=== PATIENT | male | born 1945 | race Caucasian/White ===

== ENCOUNTER 2018-01-23 05:38 | Day surgery (SDC) | payer MEDICARE ==
[2018-01-22 10:55] VITALS: BMI 20.9
[2018-01-23] MEDS ORDERED: Lidocaine 1% (PF) 30 ML VIAL ONE (06:55)
[2018-01-23] MEDS ORDERED: Midazolam HCl 2 mg/2 ml Vial ONE ×2 (07:13→08:53)
[2018-01-23] MEDS ORDERED: Fentanyl 100 MCG/2 ML VIAL ONE (07:14)
[2018-01-23] MEDS ORDERED: Heparin 10,000 UNITS/1 ML VIAL ONE (07:41)
[2018-01-23] MEDS ORDERED: Fentanyl 250 MCG/5 ML VIAL ONE (08:40)
--- NOTE | 2018-01-24 18:38 | EKG ---
Test Reason : Blood Pressure : / mmHG Vent. Rate : 053 BPM Atrial Rate : 053 BPM P-R Int : 178 ms QRS Dur : 138 ms QT Int : 418 ms P-R-T Axes : 052 067 265 degrees QTc Int : 392 ms Sinus bradycardia with occasional Premature ventricular complexes Non-specific intra-ventricular conduction block T wave abnormality, consider inferolateral ischemia Abnormal ECG No previous ECGs available Confirmed by NORMA MONTES, SBeto ([id number]) on 01/24/2018 6:37:41 PM Referred By: JEFF Confirmed By:DR. Nicky GREEN MD
== END 2018-01-23 12:20 | disposition home or self-care (01) ==
LOC: CCL 05:38
PROVIDERS: ATTEND Internal Medicine Cardiovascular Disease
PROC: B2111ZZ Fluoroscopy of Multiple Coronary Arteries using Low Osmolar Contrast (ICD-10-PCS; principal; 2018-01-23)
DX: I25.10 Atherosclerotic heart disease of native coronary artery without angina pectoris (principal); I42.0 Dilated cardiomyopathy; Z79.899 Other long term (current) drug therapy; Z79.01 Long term (current) use of anticoagulants; Z88.8 Allergy status to other drugs, medicaments and biological substances
CPT/HCPCS: 82565; 85347; 93005; 93454; 93567; C1769; 93010; 99152; 99153; J1644; J2001; J2250; J3010

== ENCOUNTER 2018-03-04 07:18 | Outpatient (CLI) | payer MEDICARE ==
[2018-03-04] MEDS ORDERED: Iopamidol 370 76% 100 ML VIAL ONE (11:56)
== END 2018-03-04 07:19 | disposition home or self-care (01) ==
LOC: BICCT 07:18
PROVIDERS: ATTEND Internal Medicine Cardiovascular Disease
DX: I71.2 Thoracic aortic aneurysm, without rupture (principal); I35.0 Nonrheumatic aortic (valve) stenosis; I42.0 Dilated cardiomyopathy; I77.811 Abdominal aortic ectasia; J44.9 Chronic obstructive pulmonary disease, unspecified; I70.90 Unspecified atherosclerosis
CPT/HCPCS: 71275; 74174

== ENCOUNTER 2018-11-04 15:33 | Outpatient (CLI) | payer MEDICARE ==
[2018-11-04 15:58] LABS: #Basophils 0.1 thou/uL (0.0-0.2); #Eosinphils 0.2 thou/uL (0.0-0.7); #Monocytes 0.5 thou/uL (0.11-0.59); #Neutrophils 5.2 thou/uL (1.40-6.50); %Basophils 0.7 % (0.0-1.0); %Lymphocytes 24.5 % (21.0-51.0); %Monocytes 5.9 % (0.0-10.0); %Neutrophils 65.9 % (42.0-75.0); Hemoglobin 14.8 g/dL (14.0-18.0); Mean Corpuscular HGB CONC 34.3 g/dL (32.0-36.0); Mean Corpuscular Hemoglobin 32.7 pg (27.0-31.0); Mean Corpuscular Volume 95.4 fL (78.0-98.0); Mean Platelet Volume 9.7 fL (7.4-10.4); Platelet Count 145 thou/uL (130-400); RBC Distribution Width 12.1 % (11.5-14.5); Red Blood Cell (RBC) Count 4.53 mill/uL (4.70-6.10)
[2018-11-04 16:01] LABS: INR-International Normal Ratio 1.7; PTT 34.6 SEC (22.9-36.1); Prothrombin Time 19.9 SEC (12.0-14.7)
[2018-11-04 16:19] LABS: Anion Gap 15 mmol/L (10-20); BUN (Urea Nitrogen) 22 mg/dL (8.4-25.7); Calc. Creatinine Clearance 0 mL/min (70-130); Calcium 10.1 mg/dL (7.8-10.44); Carbon Dioxide 26 mmol/L (23-31); Chloride 106 mmol/L (98-107); Estimated GFR-MDRD 47; Glucose 100 mg/dL (83-110); Potassium 4.9 mmol/L (3.5-5.1); Sodium 142 mmol/L (136-145)
== END 2018-11-04 15:34 | disposition home or self-care (01) ==
LOC: LABBT 15:33
PROVIDERS: ATTEND Internal Medicine Cardiovascular Disease
DX: Z51.81 Encounter for therapeutic drug level monitoring (principal); I25.5 Ischemic cardiomyopathy; Z79.01 Long term (current) use of anticoagulants
CPT/HCPCS: 80048; 85025; 85610; 85730

== ENCOUNTER 2018-11-09 06:09 | Day surgery (SDC) | payer MEDICARE ==
[2018-11-04 15:44] VITALS: BMI 20.2
[2018-11-09] MEDS ORDERED: CEFAZOLIN 1 GM VIAL ONE (07:22)
[2018-11-09] MEDS ORDERED: Meperidine HCl/PF 25 MG/ML VIAL ONE (08:26)
--- NOTE | 2018-11-09 11:46 | RAD ---
SINGLE VIEW OF THE CHEST: COMPARISON: 10/30/2017. HISTORY: CHF. FINDINGS: A single view of the chest shows an enlarged cardiomediastinal silhouette. The patient is status pos t sternotomy. There is a pacemaker with its leads in the right atrium and right ventricle. There ma y also be a lead in the coronary sinus. No pneumothorax is seen. There is no evidence of consolidat ion, mass, or pleural effusion. IMPRESSION: 1. Status post pacemaker placement without evidence of complication. 2. Cardiomegaly. POS: [facility]
[2018-11-09] MEDS ORDERED: PROPOFOL 200 MG/20 ML VIAL ONE (14:43)
[2018-11-09] MEDS ORDERED: ePHEDrine/0.9% NaCl/PF SYRINGE 50 mg/10 ml ONE (14:43)
== END 2018-11-09 13:58 | disposition home or self-care (01) ==
LOC: CCL 06:09
PROVIDERS: ATTEND Internal Medicine Cardiovascular Disease
PROC: 0JH609Z Insertion of Cardiac Resynchronization Defibrillator Pulse Generator into Chest Subcutaneous Tissue and Fascia, Open Approach (ICD-10-PCS; principal; 2018-11-09)
PROC: 02H63KZ Insertion of Defibrillator Lead into Right Atrium, Percutaneous Approach (ICD-10-PCS; 2018-11-09)
PROC: 02HK3KZ Insertion of Defibrillator Lead into Right Ventricle, Percutaneous Approach (ICD-10-PCS; 2018-11-09)
DX: I50.22 Chronic systolic (congestive) heart failure (principal); I25.5 Ischemic cardiomyopathy; I51.7 Cardiomegaly; I25.10 Atherosclerotic heart disease of native coronary artery without angina pectoris; Z95.2 Presence of prosthetic heart valve; Z79.01 Long term (current) use of anticoagulants; Z79.899 Other long term (current) drug therapy
CPT/HCPCS: 33225; 33249; 36005; 71045; 75820; 93641; C1777; C1882; C1898; C1900; J0690; J2175; J2704; J3490

== ENCOUNTER 2019-04-30 20:05 | Inpatient (IN) | payer MEDICARE ==
[2019-04-30] MEDS ORDERED: Milk Of Magnesia 30 ML UDCUP PO PRN (20:37)
[2019-04-30] MEDS ORDERED: Promethazine HCl 25 MG/ML VIAL IM PRN (20:37)
[2019-04-30] MEDS ORDERED: Acetaminophen 325 MG TAB PO PRN (20:37)
[2019-04-30] MEDS ORDERED: Promethazine 25 MG TAB PO PRN (20:37)
[2019-04-30] MEDS ORDERED: Ondansetron PF 4 MG/2 ML Vial IVP PRN (20:37)
[2019-04-30] MEDS ORDERED: Labetalol HCl 100 MG/20 ML VIAL SLOW IVP PRN (20:37)
[2019-04-30] MEDS ORDERED: Morphine 2 MG/ML SYRINGE SLOW IVP PRN (20:37)
[2019-04-30] MEDS ORDERED: diphenhydrAMINE 50 MG CAP PO PRN (20:37)
[2019-04-30] MEDS ORDERED: Docusate 100 MG CAP PO PRN (20:37)
[2019-04-30] MEDS ORDERED: Mag-Al 1200 mg/1200 mg/30 ML UDCUP PO PRN (20:37)
[2019-04-30] MEDS ORDERED: hydrALAZINE 20 MG/ML VIAL SLOW IVP PRN (20:37)
[2019-04-30] MEDS: Acetaminophen/Codeine 30-300mg Tablet PO PRN (21:40)
[2019-04-30] MEDS: Famotidine 20 MG TAB PO SCH (21:40)
[2019-04-30] MEDS: Sodium Chloride 0.9% 1,000 ML IV SCH (21:41)
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
[2019-05-01] MEDS: Acetaminophen/Codeine 30-300mg Tablet PO PRN ×3 (05:47→17:54)
[2019-05-01] MEDS: Furosemide 40 MG TAB PO SCH (07:39)
--- NOTE | 2019-05-01 08:41 | CT ---
PRELIMINARY REPORT/[facility]/EMERGENCY AFTER HOURS PROCEDURE: EXAM: CT Head Without Contrast EXAM DATE/TIME: 05/01/2019 4:03 AM CLINICAL HISTORY: 73 years old, male; Condition or disease; Patient HX: F/u sah; Additional info: *patient was scanned at another facility, prior images sent to [facility] for comparison. PT id at prior facility [id number] TECHNIQUE: Imaging protocol: Axial computed tomography images of the head without contrast. COMPARISON: No relevant prior studies available. FINDINGS: Brain: Acute multifocal bilateral subarachnoid hemorrhage. Acute extensive left parafalcine subdural hematoma measuring 11 mm in thickness. Prior study is not provided for comparison but, per history, i ntracranial hemorrhage is known. There is no midline shift. Old lacunar infarction(s). Volume loss an d chronic small vessel ischemic change. Ventricles: Normal. No ventriculomegaly. Bones/joints: Unremarkable. No acute fracture. Sinuses: Visualized sinuses are unremarkable. No fluid levels. Mastoid air cells: Visualized mastoid air cells are well aerated. No mastoid effusion. Soft tissues: Left parietal scalp contusion. IMPRESSION: Acute multifocal bilateral subarachnoid hemorrhage. Acute extensive left parafalcine subdural hematom a measuring 11 mm in thickness. Prior study is not provided for comparison but, per history, intracra nial hemorrhage is known. There is no midline shift. Thank you for allowing us to participate in the care of your patient. Dictated and Authenticated by: Gage Henriquez MD 05/01/2019 4:36 AM Central Time ([place] & [place]) FINAL REPORT HEAD CT WITHOUT CONTRAST: Date: 05/01/19 COMPARISON: 04/30/18. HISTORY: Followup subarachnoid and subdural hemorrhage. FINDINGS: Redemonstration of extra-axial hemorrhage in the subdural and subarachnoid space. There is a left par afalcine subdural collection which has not significantly changed and currently measures 9 mm (previou sly measuring 7 mm). Minimal mass effect upon the medial aspect of the left frontal and parietal lobe , near the vertex. Patchy areas of subarachnoid blood do remain. There is no evidence of hemorrhage i n the ventricular system. Cortical peñaloza-white matter differentiation appears to be preserved. Stable hypodensities in the brain parenchyma. IMPRESSION: Essentially stable intracranial hemorrhage. Continued surveillance is recommended. This report is in agreement with the preliminary report by [facility]. POS: OFF
[2019-05-01] MEDS: Lisinopril 2.5 MG TAB PO SCH (09:28)
[2019-05-01] MEDS: Sodium Chloride 0.9% 1,000 ML IV SCH (10:00)
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
[2019-05-01] MEDS: Famotidine 20 MG TAB PO SCH ×2 (11:10→20:32)
--- NOTE | 2019-05-01 11:50 | RAD ---
LEFT SHOULDER 3 VIEWS: Date: 05/01/19 HISTORY: Shoulder pain status post fall. FINDINGS: The bones are demineralized. There are no signs of fracture or dislocation. IMPRESSION: No evidence of fracture. POS: C
--- NOTE | 2019-05-01 12:02 | CT ---
CT Brain WO Con HISTORY: Follow-up of subdural hemorrhage. COMPARISON: Study done earlier this morning. FINDINGS: There is generalized ventricular and sulcal prominence. Decreased attenuation is seen to the perivent ricular white matter. Some encephalomalacia changes seen within the right occipital lobe. Small lacunar infarct in the right cerebellum. The subdural blood mainly in a parafalcine location is stable in the subarachnoid blood appears simil ar to the prior examination with some minimal improvement. No new areas of hemorrhage. Mastoid air cells and visualized sinuses are clear. IMPRESSION: Slight interval clearing to the subarachnoid blood.
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
[2019-05-01 14:38] VITALS: BMI 21.7
[2019-05-01] MEDS ORDERED: Dextrose 50% Abboject 50 ML SYRINGE SLOW IVP PRN (16:50)
[2019-05-01] MEDS ORDERED: HumaLOG 300 UNITS/3 ML VIAL SC PRN (16:50)
[2019-05-01] MEDS ORDERED: Dextrose 5% in Water 1,000 ML IV PRN (16:50)
[2019-05-01 16:53] LABS: #Lymphocytes 0.9 thou/uL (1.20-3.40); #Monocytes 0.5 thou/uL (0.11-0.59); #Neutrophils 5.4 thou/uL (1.40-6.50); %Basophils 0.2 % (0.0-1.0); %Eosinophils 0.4 % (0.0-10.0); %Lymphocytes 13.4 % (21.0-51.0); %Monocytes 6.9 % (0.0-10.0); Hemoglobin 11.1 g/dL (14.0-18.0); INR-International Normal Ratio 2.3; Mean Corpuscular HGB CONC 34.4 g/dL (32.0-36.0); Mean Corpuscular Hemoglobin 32.9 pg (27.0-31.0); Mean Corpuscular Volume 95.6 fL (78.0-98.0); Mean Platelet Volume 9.1 fL (7.4-10.4); Platelet Count 88 thou/uL (130-400); Prothrombin Time 25.4 SEC (12.0-14.7); RBC Distribution Width 12.2 % (11.5-14.5); Red Blood Cell (RBC) Count 3.36 mill/uL (4.70-6.10); White Blood Cell (WBC) Count 6.9 thou/uL (4.8-10.8)
[2019-05-01 17:07] LABS: ALT (SGPT) 11 U/L (8-55); AST (SGOT) 21 U/L (5-34); Albumin 3.7 g/dL (3.4-4.8); Alkaline Phosphatase 43 U/L (40-150); Anion Gap 12 mmol/L (10-20); BUN (Urea Nitrogen) 18 mg/dL (8.4-25.7); Bilirubin, Total 1.1 mg/dL (0.2-1.2); Calc. Creatinine Clearance 50 mL/min (70-130); Calcium 8.8 mg/dL (7.8-10.44); Carbon Dioxide 23 mmol/L (23-31); Chloride 108 mmol/L (98-107); Estimated GFR-MDRD 56; Globulin 2.3 g/dL (2.4-3.5); Glucose 97 mg/dL (83-110); MDiff Complete? YES; Platelet Morphology Comment Appears Decreased; Polychromasia SLIGHT = 2-3 cells (100X) (0-2/hpf); Potassium 4.1 mmol/L (3.5-5.1); Sodium 139 mmol/L (136-145)
[2019-05-01] MEDS ORDERED: Citalopram 20 MG TAB PO SCH (21:00)
[2019-05-02 04:27] VITALS: BP 129/66
[2019-05-02] MEDS: Sodium Chloride 0.9% 1,000 ML IV SCH (04:28)
[2019-05-02 05:24] LABS: INR-International Normal Ratio 1.7; Prothrombin Time 20.1 SEC (12.0-14.7)
[2019-05-02 07:23] VITALS: TEMP 98.3
[2019-05-02] MEDS: Famotidine 20 MG TAB PO SCH (08:26)
[2019-05-02] MEDS: Furosemide 40 MG TAB PO SCH (08:26)
[2019-05-02] MEDS: Lisinopril 2.5 MG TAB PO SCH (08:26)
--- NOTE | 2019-05-02 09:58 | PRG ---
DATE OF SERVICE: 05/02/2019 I saw Mr. Lozano in the intermediate care unit this morning. I appreciate the assistance in his management from Cardiology and Medical Services. We will keep Mr. Lozano off any blood thinners for the first week. If we can reach 7 days of a stabilized clot (were at 2 days currently) then we can start low-molecular weight heparin in a prophylactic manner for a week and then transition back to anticoagulation so long as the clot remains stable or decrease in size. Mr. Lozano understands the plan, but he is not very happy about the injection therapy that I have recommended. Job ID: [id number]
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
== END 2019-05-02 11:55 | disposition home or self-care (01) | DRG 86 ==
LOC: IMCU/EMU 21:08
PROVIDERS: ADMIT Neurological Surgery; ATTEND Neurological Surgery
DX: S06.5X0A Traumatic subdural hemorrhage without loss of consciousness, initial encounter (principal); I42.0 Dilated cardiomyopathy; I13.0 Hypertensive heart and chronic kidney disease with heart failure and stage 1 through stage 4 chronic kidney disease, or unspecified chronic kidney disease; S06.6X0A Traumatic subarachnoid hemorrhage without loss of consciousness, initial encounter; E78.5 Hyperlipidemia, unspecified; I50.9 Heart failure, unspecified; I48.91 Unspecified atrial fibrillation; S80.212A Abrasion, left knee, initial encounter; S50.812A Abrasion of left forearm, initial encounter; I25.10 Atherosclerotic heart disease of native coronary artery without angina pectoris; I71.2 Thoracic aortic aneurysm, without rupture; E11.22 Type 2 diabetes mellitus with diabetic chronic kidney disease; N18.3 Chronic kidney disease, stage 3 (moderate); Z72.0 Tobacco use; Z88.8 Allergy status to other drugs, medicaments and biological substances; Z79.899 Other long term (current) drug therapy; Z95.810 Presence of automatic (implantable) cardiac defibrillator; Z79.01 Long term (current) use of anticoagulants; Z95.0 Presence of cardiac pacemaker; Z95.2 Presence of prosthetic heart valve; Z86.73 Personal history of transient ischemic attack (TIA), and cerebral infarction without residual deficits
CPT/HCPCS: 36415; 36416; 70450; 80053; 85025; 85610

== ENCOUNTER 2022-04-09 05:48 | Day surgery (SDC) | payer MEDICARE ==
[2022-04-08 14:24] VITALS: BMI 17.9
[2022-04-09] MEDS ORDERED: PHENYLEPHRINE-NS 100 MCG/ML 10 ML SYRINGE ONE (07:55)
[2022-04-09] MEDS ORDERED: Enoxaparin Sodium 30 MG/0.3 ML SYRINGE ONE (08:33)
== END 2022-04-09 09:54 | disposition home or self-care (01) ==
LOC: SDC 05:48
PROVIDERS: ATTEND Internal Medicine Cardiovascular Disease
DX: I48.91 Unspecified atrial fibrillation (principal); Z79.01 Long term (current) use of anticoagulants; Z79.899 Other long term (current) drug therapy; Z88.8 Allergy status to other drugs, medicaments and biological substances; Z95.2 Presence of prosthetic heart valve; Z95.810 Presence of automatic (implantable) cardiac defibrillator
CPT/HCPCS: 92960; 93005; 93010; J1650